=== PATIENT | female | born 1980 | race Caucasian/White ===

== ENCOUNTER 2023-11-01 14:10 | Outpatient (REF) | payer MEDICAID, SELFPAY ==
[2023-11-01 14:30] LABS: MANUAL DIFF FLAG NO
[2023-11-01 15:35] LABS: Basophils Absolute Auto 0.1 X10*3/uL (0.0-0.2); Basophils Percent Auto 0.6 % (0-2); Eosinophils Absolute Auto 0.2 X10*3/uL (0.0-0.4); Eosinophils Percent Auto 1.9 % (0-4); Hematocrit 38.7 % (37.0-47.0); Hemoglobin 13.2 g/dl (12.0-16.0); Imm Gran Abs Auto 0.01 X10*3/uL (0.00-0.03); Imm Gran Pct Auto 0.1 % (0.0-0.4); Lymphocytes Absolute Auto 2.9 X10*3/uL (1.2-4.9); Lymphocytes Percent Auto 36.4 % (20-40); Mean Corpuscular HGB Conc 34.1 g/dl (31.0-35.0); Mean Corpuscular Volume 90.8 fL (80.0-98.0); Mean Platelet Volume 10.4 fL (9.4-12.3); Monocytes Absolute Auto 0.5 X10*3/uL (0.1-1.2); Monocytes Percent Auto 6.6 % (2-11); Neutrophils Absolute Auto 4.3 x10*3/uL (2.0-8.3); Neutrophils Percent Auto 54.4 % (45-73); Platelet Count 278 X10*3/uL (160-400); Red Blood Count 4.26 X10*6/uL (4.20-5.50); Red Cell Distribution Width 13.4 % (11.0-16.0); White Blood Count 7.9 X10*3/uL (4.8-10.8)
[2023-11-01 16:14] LABS: Erythrocyte Sedimentation Rate 5 MM/HR (0-20)
[2023-11-02 13:18] LABS: Lyme Abs Screen <0.90 index
[2023-11-05 13:49] LABS: Anti Nuclear Antibody Screen NEGATIVE (NEGATIVE)
[2023-11-06 01:49] LABS: JCV Antibody POSITIVE; JCV Index Value 1.01
== END 2023-11-01 14:11 | disposition home or self-care (01) ==
LOC: HO.LAB 14:10
PROVIDERS: Visit Provider Psychiatry & Neurology Neurology
DX: G35 Multiple sclerosis (principal)
CPT/HCPCS: 36415; 85025; 85652; 86038; 86617; 86618; 86711

== ENCOUNTER 2023-11-27 09:09 | Outpatient (REF) | payer MEDICAID, SELFPAY ==
--- NOTE | ~2023-11-27 | MR_ITS ---
EXAMINATION: MR BRAIN WITHOUT AND WITH CONTRAST CLINICAL INFORMATION: Multiple sclerosis COMPARISON: MRI of brain on 08/05/2019 TECHNIQUE: Multiplanar, multisequence MRI of the brain was obtained before and after the intravenous administration of 6 mL Gadavist. FINDINGS: Ventricles, sulci and cisterns are normal. Multiple nonenhancing T2 hyperintense lesions are seen in bilateral frontal and parietal subcortical and deep white matters, including bilateral parietal periventricular white matters. No focal lesion with T1 hypointensity is seen to suggest irreversible axonal damage. No focal brainstem or cerebellar lesions with abnormal signal can be seen. Diffusion weighted images show no abnormal regional decrease in diffusion. Post contrast images show no enhancing intra-axial cerebral, brainstem or cerebellar lesions. There is a persistent uniformly enhancing extra-axial mass lesion measuring 0.8 cm in AP diameter, 0.5 cm in width, 0.7 cm in vertical height (previously 0.7 x 0.5 cm) in the left ambient cistern, directly superior to the left internal auditory meatus, closely related to the expected course of left trigeminal nerve. The pituitary gland is normal. Optic chiasm is not displaced. Cerebellar tonsils position is normal. MR/MR head/brain wo/w con IMPRESSION: 1. Unchanged Multiple nonenhancing T2 hyperintense lesions in bilateral frontal and parietal subcortical and deep white matter, including bilateral parietal periventricular white matter, consistent with multiple sclerosis. 2. No enhancing intra-axial cerebral, brainstem or cerebellar lesions. 3. Unchanged uniformly enhancing extra-axial mass lesion in the left ambient cistern, closely related to the expected course of left trigeminal nerve, most likely representing a meningioma. Left trigeminal schwannoma remains in the differential diagnosis. Further evaluation with noncontrast axial high resolution T2-weighted FIESTA images of the brain stem is recommended, especially if the patient presents with trigeminal symptoms.
[2023-11-27] MEDS: gadobutroL 7.5 ML VIAL IVPUSH (10:12)
== END 2023-11-27 09:10 | disposition home or self-care (01) ==
LOC: HO.MRI 09:09
PROVIDERS: Visit Provider Psychiatry & Neurology Neurology
DX: G35 Multiple sclerosis (principal)
CPT/HCPCS: 70553; A9585